=== PATIENT | female | born 1945 | race Caucasian/White ===

== ENCOUNTER → 2016-06-23 | Outpatient (CLI) | payer OTHER ==
--- NOTE | 2016-06-24 08:15 | MAMMOGRAPHY REPORT ---
BILATERAL DIGITAL SCREENING MAMMOGRAM WITH CAD: 06/23/2016 CLINICAL HISTORY: Routine screening. Patient has no complaints. TECHNIQUE: Current study was also evaluated with a Computer Aided Detection (CAD) system. Bilatera l CC and MLO views were obtained. COMPARISON: Comparison is made to exams dated: 05/14/2015 mammogram, 04/05/2014 mammogram, 01/09/2013 mammogram, 12/15/2011 mammogram, 11/24/2010 mammogram, and 09/04/2009 mammogram - [facility]. BREAST COMPOSITION: The tissue of both breasts is heterogeneously dense, which may obscure small ma sses. FINDINGS: No suspicious masses, calcifications, or areas of architectural distortion are noted in e ither breast. There has been no significant interval change compared to prior exams. Scattered bilat eral benign-appearing calcifications are not significantly changed. IMPRESSION: ACR BI-RADS CATEGORY 2: BENIGN There is no mammographic evidence of malignancy. A 1 year screening mammogram is recommended. The p atient will receive written notification of the results. Approximately 10% of breast cancers are not detected with mammography. A negative mammographic repor t should not delay biopsy if a clinically suggestive mass is present. Pema Rizvi M.D. /:06/23/2016 16:50:38 Film Examiner: Tonia WINTERS)(M), [facility] letter sent: Normal 1/2 BI-RADS Code: ACR BI-RADS Category 2: Benign
== END | disposition home or self-care (01) ==
LOC: C.MAMM 16:12
PROVIDERS: ATTEND Family Medicine
DX: Z12.31 Encounter for screening mammogram for malignant neoplasm of breast (principal)

== ENCOUNTER → 2017-06-28 | Outpatient (CLI) | payer OTHER ==
--- NOTE | 2017-06-28 10:34 | DIAGNOSTIC IMAGING REPORT ---
ULTRASOUND ABDOMEN COMPLETE CLINICAL HISTORY: Constipation. Flank pain. COMPARISON STUDY: Renal ultrasound dated 01/09/2013. TECHNIQUE: Real-time, grayscale, and color flow sonography of the abdomen was performed. Images are reviewed in the transverse and longitudinal planes. FINDINGS: Liver: The liver is normal in size and echotexture. There is no intrahepatic biliary ductal dilatation. The main portal vein is patent. Gallbladder: A 4 mm gallbladder polyp is incidentally noted. The gallbladder is otherwise normal in appearance. No gallstones are identified. There is no gallbladder wall thickening or pericholecystic fluid. A sonographic Robles's sign is reportedly absent. The common bile duct measures up to 0.2 cm in diameter. Pancreas: Visualized portions of the pancreatic head and body are normal in appearance. The splenic vein is patent. Spleen: The spleen is normal in size and echotexture, measuring 9.1 cm in length. Kidneys: The kidneys demonstrate mild cortical atrophy. There is no hydronephrosis. The right kidney measures 10.2 cm in length and the left kidney measures 9.9 cm in length. No shadowing calculi are identified. A 2.0 cm cyst is noted in the interpolar right kidney. Abdominal vasculature: Visualized portions of the abdominal aorta are normal in caliber noting mild atherosclerotic irregularity. The inferior vena cava is normal as visualized. Ascites: None. IMPRESSION: No acute sonographic abnormality is identified. Electronically signed by: Jim Betts M.D. 06/28/2017 10:33 AM Dictated Date/Time: 06/28/2017 10:31 AM
== END | disposition home or self-care (01) ==
LOC: C.ULTR 09:38
PROVIDERS: ATTEND Internal Medicine Gastroenterology
DX: K59.00 Constipation, unspecified (principal)